=== PATIENT | male | born 1960 | race Two or more races ===

== ENCOUNTER → 2024-10-26 | Emergency (ER) | payer MEDICAID ==
[~2024-10-26] VITALS: Ht 193 cm; Wt 99.8 kg
[~2024-10-26] MED LIST: ASPIRIN 81 MG TAB.CHEW ONE
[2024-10-26] MEDS: ASPIRIN 81 MG TAB.CHEW PO ONE (14:18)
[2024-10-26 14:47] LABS: PLATELET COUNT (AUTO) 276 K/uL (150-450); RED BLOOD CELL COUNT(AUTO) 4.76 MIL/uL (4.5-6.0); RED CELL DISTRIBUTION WIDTH 19.3 % (11.5-15.0); WHITE BLOOD COUNT (AUTO) 5.2 K/uL (4.3-11.0)
[2024-10-26 14:56] LABS: CALCIUM, SERUM 9.5 mg/dL (8.5-10.1); CREATININE 1.0 mg/dL (0.6-1.3); SODIUM SERUM 141 mmol/L (136-145); UREA NITROGEN, BLOOD 19 mg/dL (7-18)
[2024-10-26 15:17] LABS: NT-PRO BNP 568 pg/mL (0-125)
[2024-10-26 15:32] VITALS: BP 125/87; TEMP 98.5; O2SAT 97
== END | disposition left against medical advice (07) ==
LOC: ER 13:51
DX: R07.89 Other chest pain (principal); R09.81 Nasal congestion; R06.02 Shortness of breath; F17.210 Nicotine dependence, cigarettes, uncomplicated; I11.9 Hypertensive heart disease without heart failure; I25.10 Atherosclerotic heart disease of native coronary artery without angina pectoris; I48.91 Unspecified atrial fibrillation; Z53.29 Procedure and treatment not carried out because of patient's decision for other reasons; Z79.01 Long term (current) use of anticoagulants; Z86.711 Personal history of pulmonary embolism; Z86.718 Personal history of other venous thrombosis and embolism; Z95.5 Presence of coronary angioplasty implant and graft; Z95.810 Presence of automatic (implantable) cardiac defibrillator; Z95.828 Presence of other vascular implants and grafts
CPT/HCPCS: 36415; 71045-TC; 80048-TC; 83880; 84484-TC; 85025-TC